=== PATIENT | male | born 1960 | race Caucasian/White ===

== ENCOUNTER 2018-12-14 16:50 | Emergency (ER) | payer MEDICARE ==
[~2018-12-14] VITALS: Ht 177.8 cm; Wt 90.7 kg
[2018-12-14 19:08] VITALS: BP 102/86
== END 2018-12-14 19:08 | disposition home or self-care (01) ==
LOC: ED 16:50
DX: S22.41XA Multiple fractures of ribs, right side, initial encounter for closed fracture (principal); V19.9XXA Pedal cyclist (driver) (passenger) injured in unspecified traffic accident, initial encounter; Y93.I9 Activity, other involving external motion; Y92.413 State road as the place of occurrence of the external cause; Y99.8 Other external cause status
CPT/HCPCS: J3010

== ENCOUNTER 2018-12-17 20:37 | Observation (INO) | payer OTHER ==
[~2018-12-17] VITALS: Ht 177.8 cm; Wt 93.5 kg
[2018-12-17 21:08] VITALS: Ht 177.8 cm; Wt 93.5 kg
[2018-12-17 22:14] LABS: BASOPHIL % 0.3 % (0-2); PLATELET COUNT 169 x10^3mcL (130-400); RED CELL DISTRIBUTION WIDTH 12.6 % (11.5-14.5)
[2018-12-17 22:27] LABS: CALCIUM 11.2 mg/dL (8.5-10.1); CARBON DIOXIDE 25.6 mmol/L (21-32); CHLORIDE SERUM 96 mmol/L (98-107); GFR1 > 60 mL/min; GLUCOSE SERUM 133 mg/dL (74-106); POTASSIUM SERUM 4.4 mmol/L (3.5-5.1); SODIUM SERUM 134 mmol/L (136-145)
[2018-12-17 22:32] LABS: ALKALINE PHOSPHATASE 79 U/L (46-116); ALT/SGPT 45 U/L (16-63); AST/SGOT 29 U/L (15-37); BILIRUBIN TOTAL 2.62 mg/dL (0.20-1.00)
[2018-12-17 22:34] LABS: TOTAL PROTEIN, SERUM 8.3 g/dL (6.4-8.2)
[2018-12-17] MEDS ORDERED: NORCO1 TA2 (22:44)
[2018-12-17] MEDS ORDERED: GOOD SENSE ASP325 MG (22:44)
[2018-12-18 00:06] LABS: UA SPECIFIC GRAVITY 1.025 (1.005-1.035); microscopic required? YES; urine erythrocyte NEGATIVE (NEGATIVE)
[2018-12-18 00:16] VITALS: BP 144/77
[2018-12-18 05:15] VITALS: BP 118/64
[2018-12-18 07:40] LABS: ALBUMIN 2.8 g/dL (3.4-5.0); ALKALINE PHOSPHATASE 55 U/L (46-116); ALT/SGPT 32 U/L (16-63); AST/SGOT 22 U/L (15-37); BILIRUBIN TOTAL 1.58 mg/dL (0.20-1.00); CARBON DIOXIDE 26.5 mmol/L (21-32); CHLORIDE SERUM 103 mmol/L (98-107); GFR1 > 60 mL/min; GLUCOSE SERUM 101 mg/dL (74-106); POTASSIUM SERUM 4.2 mmol/L (3.5-5.1); SODIUM SERUM 138 mmol/L (136-145); TOTAL PROTEIN, SERUM 6.2 g/dL (6.4-8.2)
[2018-12-18 08:17] VITALS: BP 118/77
[2018-12-18 11:53] VITALS: BP 128/64
[2018-12-18 16:59] VITALS: BP 118/64
[2018-12-18 19:44] VITALS: BP 118/65
[2018-12-19 04:53] VITALS: BP 134/86
[2018-12-19 08:41] VITALS: BP 121/72
[2018-12-19 12:07] VITALS: BP 120/58
[2018-12-19 16:00] VITALS: BP 131/66
== END 2018-12-19 17:16 | disposition home or self-care (01) | DRG 184 ==
LOC: ED 20:37 → DU 22:35
PROVIDERS: Emergency Medicine; ADMIT Internal Medicine Pulmonary Disease
DX: S22.41XA Multiple fractures of ribs, right side, initial encounter for closed fracture (principal); S27.321A Contusion of lung, unilateral, initial encounter; V19.9XXA Pedal cyclist (driver) (passenger) injured in unspecified traffic accident, initial encounter; Y92.9 Unspecified place or not applicable
CPT/HCPCS: G0378; J0456; J0696; J1650; J1885; J2270; J7030; J7050; Q0092